=== PATIENT | male | born 1960 | race Two or more races ===

== ENCOUNTER → 2018-06-07 | Day surgery (SDC) | payer OTHER ==
[~2018-06-07] MED LIST: ASA81 MG PO; HUMULIN 70100 UNIT/1; NORVASC10 MG PO; TRAZODONE HCL50 MG PO; ZANTAC300 MG PO
== END | disposition home or self-care (01) ==
LOC: ADM 05-29 11:00 → CIR.AMB 06-04 10:00 → AMB-ENDOS 06-04 11:00 → CIR.AMB 04:35
DX: M24.832 Other specific joint derangements of left wrist, not elsewhere classified (principal)

== ENCOUNTER 2019-04-29 05:58 | Day surgery (SDC) | payer OTHER ==
[~2019-04-29 05:58] MED LIST changes: +LIPITOR80 MG; +MOTRIN PO
== END 2019-04-29 13:10 | disposition home or self-care (01) ==
LOC: CIR.AMB 05:58
DX: M19.132 Post-traumatic osteoarthritis, left wrist (principal)
CPT/HCPCS: 25825; C1776

== ENCOUNTER 2019-11-18 05:46 | Day surgery (SDC) | payer OTHER ==
[~2019-11-18 05:46] MED LIST changes: +AVAPRO75 MG PO; +MOTRIN IB200 M1 PO; +NOVOLOG MI100 UNIT/1; +OMEGA 3-6-9 CO400 MG PO
== END 2019-11-18 15:35 | disposition home or self-care (01) ==
LOC: CIR.AMB 05:46 → ADM 10:30 → CIR.AMB 15:35
DX: M19.032 Primary osteoarthritis, left wrist (principal)
CPT/HCPCS: 25420; 20680; 20902; 25295; C1776

== ENCOUNTER 2022-12-19 06:00 | Day surgery (SDC) | payer OTHER ==
[~2022-12-19] VITALS: Ht 175.3 cm; Wt 103.0 kg
[~2022-12-19 06:00] MED LIST changes: +B12 ACTIVE1000 MCG PO; +FOLIC ACID1 MG PO; +HUMULIN 70100 UNIT/2 SUBCUTANEO
== END 2022-12-19 16:45 | disposition home or self-care (01) ==
LOC: CIR.AMB 06:00
PROVIDERS: ATTEND Orthopaedic Surgery Hand Surgery
DX: M19.022 Primary osteoarthritis, left elbow (principal); Z20.822 Contact with and (suspected) exposure to COVID-19; I10 Essential (primary) hypertension; E11.9 Type 2 diabetes mellitus without complications; E78.00 Pure hypercholesterolemia, unspecified; Z88.6 Allergy status to analgesic agent; Z79.4 Long term (current) use of insulin
CPT/HCPCS: 24360; 24149; L8699

== ENCOUNTER 2022-12-23 15:30 | Inpatient (IN) | payer OTHER ==
[~2022-12-23] VITALS: Ht 175.3 cm; Wt 103.0 kg
--- NOTE | 2022-12-23 15:56 | NUR ---
SE RECIBE PACIENTE ALERTA Y ORIENTADO EN COOKIE ESA ESFERAS EN AMBULANCIA DEL [facility] [place] [place] EN [place]. EL MISMO REFIERE TENER CELULITIS EN EL BRAZO JERMAINE LUEGO DE FUE OPERADO. SE MONITOEAN VS Y SE UBICA EN DE #12.
--- NOTE | 2022-12-23 19:42 | NUR ---
PTE EVALUADO POR EL DR DYE. AL MOMENTO NO REQUIERE INTERVENCION DE ENFERMERIA.
[2022-12-25] MEDS ORDERED: FAMOTIDINE20 MG (10:25)
[2022-12-25] MEDS ORDERED: IRBESARTAN150 MG (10:25)
[2022-12-25] MEDS ORDERED: GABAPENTIN600 MG (10:25)
[2022-12-25] MEDS ORDERED: EZETIMIBE10 MG (10:25)
[2022-12-25] MEDS ORDERED: ALLOPURINOL300 MG (10:26)
[2022-12-25] MEDS ORDERED: TRAZODONE HCL100 MG (10:26)
[2022-12-25] MEDS ORDERED: FLONASE16 GM (10:26)
[2022-12-25] MEDS ORDERED: AZELASTINE137 MCG/0. (10:26)
[2022-12-25] MEDS ORDERED: CLONAZEPAM0.5 MG (10:26)
== END 2022-12-26 20:25 | disposition home or self-care (01) | DRG 638 ==
LOC: ER 15:30 → MEDJ 21:53
PROVIDERS: ADMIT Orthopaedic Surgery Hand Surgery; ATTEND Orthopaedic Surgery Hand Surgery
PROC: B54NZZZ Ultrasonography of Left Upper Extremity Veins (ICD-10-PCS; principal; 2022-12-23)
PROC: B34JZZZ Ultrasonography of Left Upper Extremity Arteries (ICD-10-PCS; 2022-12-23)
DX: E11.628 Type 2 diabetes mellitus with other skin complications (principal); L03.114 Cellulitis of left upper limb; Z79.4 Long term (current) use of insulin

== ENCOUNTER 2023-06-19 06:00 | Day surgery (SDC) | payer OTHER ==
[2023-06-13 09:30] LABS: PH,URINE 5.5 (5.0-8.0); URINE APPEARANCE Clear; URINE BILIRRUBIN Negative (NEGATIVE); URINE BLOOD Negative; URINE COLOR Yellow; URINE GLUCOSE Negative (NEGATIVE); URINE LEUKOCYTE Negative; URINE NITRATE Negative; URINE PROTEIN Negative (NEGATIVE); URINE UROBILINOGEN 0.2 E.U./dl
[2023-06-13 09:34] LABS: HEMATOCRIT 40.6 % (39.0-48.0); HEMOGLOBIN 13.6 g/dL (13-16.00); MEAN CELL VOLUME 83.9 fL (80.0-100.00); MEAN CORPUSCULAR HEMOGLOBIN 28.2 pg (27.00-32.0); MEAN CORPUSCULAR HGB CONC 33.6 g/dl (32.0-36.0); PLATELET COUNT 174 K/uL (150-450); RED BLOOD COUNT 4.84 M/uL (4.00-6.00); RED CELL DISTRIBUTION WIDTH 15.3 % (11.5-14.5); URINE BACTERIA 7.5 uL (0.0-1933)
[2023-06-13 10:04] LABS: URINE EPITHELIAL CELLS 0.7 uL (0.0-38.8); URINE RBC 0.4 uL (0.0-20.8)
[2023-06-13 10:16] LABS: ALBUMIN 3.8 gm/dL (3.4-5.0); BILIRUBIN TOTAL 0.44 mg/dL (0.3-1.2); CALCIUM 9.4 mg/dL (8.5-10.1); CREATININE SERUM 1.35 mg/dL (0.70-1.30); GFR 53.04; GLOBULINA 3.7 G/DL (2.4-3.5); POTASSIUM 4.04 mEq/L (3.5-5.1); TOTAL PROTEIN 7.5 gm/dL (6.4-8.2)
[2023-06-13 10:19] LABS: INR 0.98; PARTIAL THROMBOPLASTIN TIME 25.4 SECONDS (22.0-34.0); PROTHROMBIN TIME 10.3 SECONDS (9.0-11.5)
[~2023-06-19] VITALS: Ht 175.3 cm; Wt 104.3 kg
[~2023-06-19 06:00] MED LIST changes: +ALLOPURINOL300 MG; +AZELASTINE137 MCG/0.; +CLONAZEPAM0.5 MG; +CRESTOR PO; +EZETIMIBE10 MG; +FAMOTIDINE20 MG; +FLONASE16 GM; +GABAPENTIN600 MG; +IRBESARTAN150 MG; +OMEGA 3 1,0001 EACH PO; +TRAZOD; +TRAZODONE HCL100 MG
== END 2023-06-19 14:40 | disposition home or self-care (01) ==
LOC: CIR.AMB 06:00
PROVIDERS: ATTEND Orthopaedic Surgery Hand Surgery
DX: D21.12 Benign neoplasm of connective and other soft tissue of left upper limb, including shoulder (principal); R22.32 Localized swelling, mass and lump, left upper limb; E11.9 Type 2 diabetes mellitus without complications; E78.00 Pure hypercholesterolemia, unspecified; E78.3 Hyperchylomicronemia; Z20.822 Contact with and (suspected) exposure to COVID-19; I10 Essential (primary) hypertension; Z88.8 Allergy status to other drugs, medicaments and biological substances; E78.5 Hyperlipidemia, unspecified

== ENCOUNTER 2024-10-14 05:20 | Day surgery (SDC) | payer OTHER ==
[2024-09-30 07:59] VITALS: BP 129/75
[2024-09-30 08:02] LABS: HEMATOCRIT 40.5 % (39.0-48.0); HEMOGLOBIN 14.2 g/dL (13-16.00); MEAN CELL VOLUME 82.5 fL (80.0-100.00); MEAN CORPUSCULAR HGB CONC 35.1 g/dl (32.0-36.0); PLATELET COUNT 192 K/uL (150-450); RED BLOOD COUNT 4.91 M/uL (4.00-6.00)
[2024-09-30 08:08] LABS: PH,URINE 5.5 (5.0-8.0); URINE APPEARANCE Clear; URINE BILIRRUBIN Negative (NEGATIVE); URINE BLOOD Negative; URINE COLOR Yellow; URINE GLUCOSE Negative (NEGATIVE); URINE KETONE Negative (NEGATIVE); URINE LEUKOCYTE Negative; URINE NITRATE Negative; URINE PROTEIN Negative (NEGATIVE); URINE UROBILINOGEN 0.2 E.U./dl
[2024-09-30 08:12] LABS: URINE BACTERIA 7.3 uL (0.0-1933); URINE EPITHELIAL CELLS 1.5 uL (0.0-38.8)
[2024-09-30 08:37] LABS: URINE CAST 0.44 uL (0.0-1.40); URINE RBC 1.7 uL (0.0-20.8)
[2024-09-30 08:51] LABS: INR 0.96; PARTIAL THROMBOPLASTIN TIME 26.1 SECONDS (22.0-34.0); PROTHROMBIN TIME 10.5 SECONDS (9.0-11.5)
[2024-09-30 08:55] LABS: ALBUMIN 3.9 gm/dL (3.4-5.0); BILIRUBIN TOTAL 0.41 mg/dL (0.3-1.2); CALCIUM 9.5 mg/dL (8.5-10.1); CREATININE SERUM 1.42 mg/dL (0.70-1.30); GFR 49.88; GLOBULINA 3.7 G/DL (2.4-3.5); POTASSIUM 4.12 mEq/L (3.5-5.1); TOTAL PROTEIN 7.6 gm/dL (6.4-8.2)
[~2024-10-14] VITALS: Ht 175.3 cm; Wt 107.5 kg
[~2024-10-14 05:20] MED LIST changes: +VITAMIN B12; +VITAMIN D3
[2024-10-14] MEDS ORDERED: CLINDAMYCIN PHOSPHATE 150 MG/ML (900mg) IV SCH (06:00)
[2024-10-14] MEDS ORDERED: CLINDAMYCIN PHOSPHATE 150 MG/ML (900mg) ONE ×2 (09:11→13:14)
== END 2024-10-14 16:55 | disposition home or self-care (01) ==
LOC: CIR.AMB 05:20
PROVIDERS: ATTEND Orthopaedic Surgery Hand Surgery
DX: M19.022 Primary osteoarthritis, left elbow (principal); I10 Essential (primary) hypertension; J45.909 Unspecified asthma, uncomplicated; E78.5 Hyperlipidemia, unspecified; Z88.6 Allergy status to analgesic agent; Z88.1 Allergy status to other antibiotic agents; Z88.5 Allergy status to narcotic agent
CPT/HCPCS: 24363; L8699

== ENCOUNTER 2024-10-19 01:10 | Emergency (ER) | payer OTHER ==
[~2024-10-19] VITALS: Ht 175.3 cm; Wt 106.6 kg
[2024-10-19 03:17] LABS: HEMATOCRIT 32.8 % (39.0-48.0); HEMOGLOBIN 11.4 g/dL (13-16.00); MEAN CELL VOLUME 82.6 fL (80.0-100.00); MEAN CORPUSCULAR HEMOGLOBIN 28.8 pg (27.00-32.0); MEAN CORPUSCULAR HGB CONC 34.9 g/dl (32.0-36.0); PLATELET COUNT 199 K/uL (150-450); RED BLOOD COUNT 3.97 M/uL (4.00-6.00); RED CELL DISTRIBUTION WIDTH 15.7 % (11.5-14.5)
[2024-10-19 04:14] LABS: ALBUMIN 3.3 gm/dL (3.4-5.0); BILIRUBIN TOTAL 0.58 mg/dL (0.3-1.2); CREATININE SERUM 1.44 mg/dL (0.70-1.30); GFR 49.08; GLOBULINA 3.4 G/DL (2.4-3.5); POTASSIUM 3.53 mEq/L (3.5-5.1); TOTAL PROTEIN 6.7 gm/dL (6.4-8.2); URIC ACID 5.5 mg/dL (3.5-8.5)
[2024-10-19 04:27] LABS: INR 0.94; PARTIAL THROMBOPLASTIN TIME 25.1 SECONDS (22.0-34.0); PROTHROMBIN TIME 10.3 SECONDS (9.0-11.5)
[2024-10-19 05:00] LABS: ERYTHROCYTE SEDIMENTATION RATE 69 mm/hr
== END 2024-10-19 10:18 | disposition home or self-care (01) ==
LOC: ER 01:10
DX: T81.49XA Infection following a procedure, other surgical site, initial encounter (principal); G89.18 Other acute postprocedural pain; L03.114 Cellulitis of left upper limb; Z88.6 Allergy status to analgesic agent; Z88.5 Allergy status to narcotic agent

== ENCOUNTER 2024-10-26 14:11 | Emergency (ER) | payer OTHER ==
[~2024-10-26] VITALS: Ht 175.3 cm; Wt 106.6 kg
[2024-10-26] MEDS ORDERED: PEPCID AC20 MG PO (15:37)
[2024-10-26] MEDS ORDERED: TRAZODONE HCL150 MG (15:38)
[2024-10-26] MEDS ORDERED: CLONAZEPAM1 MG PO (15:38)
[2024-10-26] MEDS ORDERED: CLINDAMYCIN PHOSPHATE 150 MG/ML (300mg) IV ONE (16:30)
[2024-10-26] MEDS ORDERED: CLINDAMYCIN PHOSPHATE 150 MG/ML (300mg) ONE (16:33)
[2024-10-26 16:54] LABS: HEMATOCRIT 34.1 % (39.0-48.0); HEMOGLOBIN 11.8 g/dL (13-16.00); MEAN CELL VOLUME 82.4 fL (80.0-100.00); MEAN CORPUSCULAR HEMOGLOBIN 28.5 pg (27.00-32.0); MEAN CORPUSCULAR HGB CONC 34.5 g/dl (32.0-36.0); PLATELET COUNT 303 K/uL (150-450); RED BLOOD COUNT 4.14 M/uL (4.00-6.00); RED CELL DISTRIBUTION WIDTH 15.8 % (11.5-14.5)
[2024-10-26 17:12] LABS: PH,URINE 5.5 (5.0-8.0); URINE APPEARANCE Clear; URINE BILIRRUBIN Negative (NEGATIVE); URINE BLOOD Negative; URINE COLOR Yellow; URINE KETONE Negative (NEGATIVE); URINE LEUKOCYTE Negative; URINE NITRATE Negative; URINE PROTEIN Negative (NEGATIVE); URINE UROBILINOGEN 0.2 E.U./dl
[2024-10-26 17:16] LABS: ALBUMIN 3.8 gm/dL (3.4-5.0); BILIRUBIN TOTAL 0.46 mg/dL (0.3-1.2); CALCIUM 9.4 mg/dL (8.5-10.1); CREATININE SERUM 1.37 mg/dL (0.70-1.30); GFR 51.99; GLOBULINA 4.6 G/DL (2.4-3.5); POTASSIUM 4.01 mEq/L (3.5-5.1); TOTAL PROTEIN 8.4 gm/dL (6.4-8.2)
[2024-10-26 17:16] LABS: URINE EPITHELIAL CELLS 1.4 uL (0.0-38.8); URINE RBC 2.3 uL (0.0-20.8)
[2024-10-26 17:41] LABS: URINE GLUCOSE >=1000 MG/DL (NEGATIVE); URINE WBC 1.2 uL (0.0-23.2)
== END 2024-10-26 20:38 | disposition home or self-care (01) ==
LOC: ER 14:11
PROVIDERS: Emergency Medicine
DX: Z98.890 Other specified postprocedural states (principal); I10 Essential (primary) hypertension; E11.9 Type 2 diabetes mellitus without complications; Z79.4 Long term (current) use of insulin; Z88.5 Allergy status to narcotic agent
CPT/HCPCS: 36415; 96365; 99282; J3490